=== PATIENT | male | born 1965 | race African-American/Black ===

== ENCOUNTER 2017-12-11 11:16 | Emergency (ER) | payer OTHER ==
[~2017-12-11] VITALS: Ht 167.6 cm; Wt 83.1 kg
[2017-12-11 11:57] LABS: HEMATOCRIT 42.6 % (38.0-50.0); HEMOGLOBIN 14.2 G/DL (12.5-16.6); MCH 28.6 PG (29.0-34.0); MCHC 33.3 G/DL (30.0-36.0); MCV 85.7 FL (86-99); PLATELET COUNT 285 K/uL (156-360); RBC DIS.WIDTH-CV 12.3 % (11.8-14.6); RBC DIS.WIDTH-SD 38.4 % (39-53); RED BLOOD COUNT 4.97 M/uL (4.00-5.50); WHITE BLOOD COUNT 4.8 K/uL (4.1-10.2)
[2017-12-11 12:26] LABS: TROP-I INTERPRETATION NEGATIVE; TROPONIN-I < 0.01 ng/mL (0.0-0.30)
[2017-12-11 12:38] LABS: CHLORIDE 102 MEQ/L (99-109); POTASSIUM 4.1 MEQ/L (3.7-5.4); SODIUM 138 MEQ/L (136-147)
[2017-12-11 12:44] LABS: CREATININE 1.2 MG/DL (0.6-1.3); GFR ESTIMATE (CALCULATED) > 59 mL/min/ (58.99-99999); GLUCOSE 108 mg/dL (70-99); UREA NITROGEN (BUN) 13 mg/dL (9-23)
[2017-12-11 13:08] VITALS: BP 113/88
== END 2017-12-11 13:00 | disposition home or self-care (01) ==
LOC: EME 11:16
DX: R07.89 Other chest pain (principal); J30.9 Allergic rhinitis, unspecified
CPT/HCPCS: 71046; 80048; 84484; 85027; 93005; 99281; 99284